=== PATIENT | female | born 2000 | race Caucasian/White ===

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

== ENCOUNTER 2020-02-20 18:28 | Outpatient (REF) | payer OTHER, SELFPAY ==
[2020-02-22 21:34] LABS: COVID-19 RT-PCR Result NEGATIVE (Negative)
== END 2020-02-20 18:48 ==
LOC: NCHCN 18:28
PROVIDERS: PCP Family Medicine; Visit Provider Nurse Practitioner Family
DX: Z20.828 Contact with and (suspected) exposure to other viral communicable diseases (principal)
CPT/HCPCS: U0003

== ENCOUNTER 2021-02-19 17:53 | Outpatient (REF) | payer OTHER, SELFPAY ==
[2021-02-21 10:32] LABS: COVID-19 RT-PCR UVMMC Result Negative (Negative)
== END 2021-02-19 17:54 | disposition home or self-care (01) ==
LOC: NCHCN 17:53
PROVIDERS: PCP Nurse Practitioner Family; Visit Provider Nurse Practitioner Family
DX: Z20.822 Contact with and (suspected) exposure to COVID-19 (principal)
CPT/HCPCS: U0003

== ENCOUNTER 2021-07-17 10:14 | Outpatient (REF) | payer OTHER, SELFPAY ==
--- NOTE | 2021-07-17 09:30 | PAPFT_PTH ---
PATIENT: Arjun Harding LOC: [facility]#:[id number] AGE/SX: 21/F ROOM: RE07/17/[address]: Dana Gutierrez : 2000 BED: DIS: 07/17/2021 SPEC #: [id number] RECD: 07/17/21 17:06 STATUS: ALYX REBarbara #: [id number] TAD: 07/17/21 09:[address]: Dana Gutierrez DEPT: [facility] Cytology RECD BY: Marycruz Rowan ENTERED: 07/17/21 17:06 SP TYPE: PAPFT OTHR DR: Jackelyn Flores Tissues: 1 - CX/ENDOCX FOR PAP SMEARS Procedures: PAP THIN PREP/[facility] Screening Comments: [id number] (CHLAMYDIA/GC)
[2021-07-18 15:32] LABS: Chlamydia Result Negative (Negative); GC Result Negative (Negative)
== END 2021-07-17 10:15 | disposition home or self-care (01) ==
LOC: NCHCN 10:14
PROVIDERS: PCP Nurse Practitioner Family; Visit Provider Nurse Practitioner Family
DX: Z11.3 Encounter for screening for infections with a predominantly sexual mode of transmission (principal); Z12.4 Encounter for screening for malignant neoplasm of cervix; Z00.00 Encounter for general adult medical examination without abnormal findings; Z01.419 Encounter for gynecological examination (general) (routine) without abnormal findings
CPT/HCPCS: 87491; 87591; 88142

== ENCOUNTER 2022-08-04 14:00 | Outpatient (REF) | payer OTHER, SELFPAY | END 2022-08-04 14:01 | disposition home or self-care (01) | LOC: LBN 14:00 | PROVIDERS: PCP Nurse Practitioner Family; Visit Provider Nurse Practitioner Family | DX: N39.0 Urinary tract infection, site not specified (principal) | CPT/HCPCS: 87086 ==

== ENCOUNTER 2024-10-20 12:59 | Outpatient (REF) | payer OTHER, SELFPAY ==
--- NOTE | 2024-10-20 07:50 | PAPFT_PTH ---
PATIENT: Arjun Harding LOC: [facility]N #:[id number] AGE/SX: 24/F ROOM: RE10/20/[address]: Dana Gutierrez : 2000 BED: DIS: 10/20/2024 SPEC #: [id number] RECD: 10/20/24 17:39 STATUS: ALYX REBarbara #: [id number] TAD: 10/20/24 07:[address]: Dana Gutierrez DEPT: [facility] Cytology RECD BY: Marycruz Rowan ENTERED: 10/20/24 17:45 SP TYPE: PAPFT OTHR DR: Jackelyn Flores Tissues: 1 - CX/ENDOCX FOR PAP SMEARS Procedures: PAP THIN PREP/[facility] Screening Comments: [id number]
== END 2024-10-20 13:00 | disposition home or self-care (01) ==
LOC: NCHCN 12:59
PROVIDERS: PCP Nurse Practitioner Family; Visit Provider Nurse Practitioner Family
DX: Z12.4 Encounter for screening for malignant neoplasm of cervix (principal)
CPT/HCPCS: 88142

== ENCOUNTER 2025-01-21 10:15 | Emergency (ER) | payer OTHER, SELFPAY ==
[2025-01-21 10:18] VITALS: BP 145/84; PULSE 71; RESP 18; TEMP 36.6; O2SAT 98
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
--- NOTE | 2025-01-21 10:59 | DI.RAD_ITS ---
Exam(s) XR HAND RT COMPLETE EXAM: XR HAND RT COMPLETE CLINICAL HISTORY: Injury Swelling. TECHNIQUE: 2D digital imaging was performed of the right hand. Three images were obtained. AP, lateral and oblique views were obtained. COMPARISON: No exams were available for comparison FINDINGS: BONES: No acute fracture is present. No bony destructive lesion is seen. JOINTS: No dislocation present. SOFT TISSUE: Normal. IMPRESSION: 1. Unremarkable radiographs of the right hand. 2. The preliminary [facility] report was reviewed. DATA REPOSITORY: RADIATION DOSE DELIVERED:
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
[2025-01-21] MEDS: Ibuprofen 600 MG TAB PO (11:28)
== END 2025-01-21 11:41 | disposition home or self-care (01) ==
PROVIDERS: Emergency Provider Registered Nurse Emergency; PCP Nurse Practitioner Family
DX: S69.81XA Other specified injuries of right wrist, hand and finger(s), initial encounter (principal); V47.5XXA Car driver injured in collision with fixed or stationary object in traffic accident, initial encounter
CPT/HCPCS: 29125; 99283; 73130